=== PATIENT | female | born 1970 | race Caucasian/White ===

== ENCOUNTER → 2019-08-08 | Outpatient (CLI) | payer OTHER | END | disposition home or self-care (01) | LOC: LAB 09:30 | PROVIDERS: ATTEND Registered Nurse | DX: Z11.59 Encounter for screening for other viral diseases (principal) | CPT/HCPCS: C9803; U0003; 87426 ==

== ENCOUNTER → 2019-08-12 | Day surgery (SDC) | payer OTHER ==
[~2019-08-12] MED LIST: IPRATRPIUM/ALBUTEROL 0.5/2.5MG 3 ML NEBU. NEB PRN; IV RINGERS SOLUTION,LACTATED 1,000 ML IV SCH; ONDANSETRON PF 4 MG/2 ML VIAL. IV PRN; PROPOFOL 10,000 MCG/ML (20ML) VIAL IV ONE
[2019-08-12 10:03] LABS: U PREG PATIENT NEGATIVE (NEG)
[2019-08-12 10:50] VITALS: BP 116/74
--- NOTE | 2019-08-13 17:08 | PATHOLOGY ---
[facility] Accession Number: [id number] . 01 Material submitted: . stomach - GASTRIC BIOPSY/DISTAL ESOPHAGUS . 01 Clinical history: . R/O H. pylori . 02 Diagnosis: Segments of squamous esophageal and gastric mucosa, distal esophageal and gastric biopsies: - Reflux esophagitis. - Chronic gastritis, mild. ([facility] 08/13/2019) [facility] 08/13/2019 0910 Local . 02 Comment: Sections of the distal esophageal and gastric biopsy reveal segments of squamous esophageal mucosa and gastric antral/body transition mucosa. The squamous esophageal mucosa is mildly hyperplastic, consistent with reflux esophagitis. There is no evidence of Aaron's change, dysplasia, or malignancy. The gastric mucosa shows congestion and mild chronic inflammation. A properly controlled immunoperoxidase stain for Helicobacter is negative for Helicobacter organisms. There is no evidence of malignancy. ([facility] 08/13/2019) . Special stain performed: Immunoperoxidase for Helicobacter on A1. . 02 Electronically signed: . Buddy Mcgee MD, Pathologist NPI- [id number] . 01 Gross description: . The specimen is received in formalin, labeled "Flor Quiñonez, gastric biopsy, R/O H. pylori". The specimen is additionally labeled on the requisition as, "gastric biopsy/distal esophagus". Received are four segments of pale harley soft tissue ranging in size from 0.2 to 0.4 cm in maximum dimensions. The specimen is submitted entirely in cassette A1. ([facility]; 08/12/2019) QA/QA 08/12/2019 1708 Local . 02 Pathologist provided ICD-10: K21.0, K29.50 . 02 CPT . 623398, [id number] Specimen Comment: A courtesy copy of this report has been sent to [phone] Specimen Comment: [id number] Specimen Comment: Report sent to Performed at: 01 [place] [id number] [id number] MD Sonny Lowry MD Phone: [phone] Performed at: 02 [facility] [address] [place], [place] [id number] MD Buddy Mcgee MD Phone: [phone]
== END ==
LOC: SURG 08:54
PROVIDERS: ATTEND Emergency Medicine
DX: K29.50 Unspecified chronic gastritis without bleeding (principal); K21.0 Gastro-esophageal reflux disease with esophagitis; Z79.899 Other long term (current) drug therapy; E89.0 Postprocedural hypothyroidism; Z98.890 Other specified postprocedural states
CPT/HCPCS: 43239; 81025; 88305; 88342; J2704; J7120; 45378